=== PATIENT | female | born 1975 | race Caucasian/White ===

== ENCOUNTER 2016-08-24 15:10 | Emergency (ER) | payer OTHER ==
[~2016-08-24] VITALS: Ht 162.6 cm; Wt 55.9 kg
[2016-08-24 15:18] VITALS: BP 111/64; PULSE 71; RESP 18; O2SAT 96
--- NOTE | 2016-08-24 15:51 | ED.REPORT ---
HPI-General Illness Date of Service Aug 24, 2016 ED Provider: Dr. Meneses 40 y/o female with a hx of autism and self-induced injuries presents to the ED with her caregiver due to a laceration on the forehead after she hit her head against a banister 5 hours ago. The pt did not lose consciousness upon hitting her head. There is no bleeding in the ED. Her caregivers requested glue application at urgent care but were sent to the ED for stitches. As per the caregiver, the pt has required sedation for stitches in the past as she becomes aggressive. Nursing Notes Stated Complaint: HEAD LACERATION Chief Complaint: Laceration Nursing Notes Reviewed: Yes Allergies: Coded Allergies: No Known Allergies (Unverified , 08/24/16) General Time Seen by MD: 15:50 Chief Complaint Laceration Hx Obtained From: Assistant Paralegal Arrived By: Walk-in Sudden in Onset?: Yes Onset Occurred: 1 - 4 hours ago Symptom Duration: Since onset Severity: Current: No pain currently Severity: Maximum: No pain Recent Healthcare: Recent doctor visit Similar Sx Previous: Yes Past Medical History Past Medical History Autism Cerebral Palsy Past Surgical History none reported Social History Lives alone in a supported living facility Ambulatory Status Independent Review of Systems Reports: laceration to forehead Full Review of Systems Neurologic: Denies: Change LOC Complete sys rev & neg: except as marked. Physical Exam Vital Signs Vital Signs Date Time Temp Pulse Resp B/P Pulse Ox O2 Delivery O2 Flow Rate FiO2 08/24/16 15:18 37.0 71 18 111/64 96 Room Air Initial VS: Reviewed Head / Eyes: Normocephalic Neck: Supple, Non-tender, Full range of motion Respiratory: No respiratory distress Extremities: Vascular intact, Neuro intact, No swelling, No tenderness Skin: Warm, Dry, No cyanosis Neurologic: Alert, Oriented, Nonfocal General/Constitutional: Awake, Alert, No acute distress, Cooperative Cardiovascular: Heart rate NL, Regular rhythm Skin: Color NL, Warm, Dry, No swelling 1cm laceration of full thickness at the left side of hairline. Neurologic: No motor deficits, No sensory deficits Procedures Laceration Management Procedure Performed by: ED physician Consent / Setup / Site Prep: Informed consent provided, Consent from patient , Consent from high school tutor Location of Wound: L forehead at hairline Wound Length: 1 cm Wound Preparation: Hibiclens - Chlorhexidine Debridement: Minimal Foreign Body Explore / Removal: Explored for foreign body Repair Skin: Dermabond Post-Procedure / Complications: Dressing applied, No complications, Tolerated procedure well, Patient stable Re-Eval/Medical Decision Time of Eval: 16:05 Patient Status: Condition improved Re-Evaluation/Progress Note: Applied Dermabond. Discussed diagnosis and plan to discharge with the pt's caregiver. She understands and agrees with the plan. F/U instructions and RTER warning given. All questions addressed. Counseled Regarding: Diagnosis, Need for follow-up, When/why to return to ED Discharge & Departure Primary Impression: Laceration Additional Impressions: Agitation Autism Disposition: Home Discharge Condition All VS Reviewed: Yes Condition: Stable Patient Instructions: Laceration (ED) Additional Instructions: Thank you for entrusting us with your care today. Cheryls laceration did not require stitches because it is in an area of low tension. Dermabond and a Steri-Strip were applied to the wound and it looks very good. Follow up with the primary care provider if needed. She can shower/bathe tomorrow as usual Return to the emergency department in case of increasing redness, drainage, fevers, chills or worsening symptoms. Referrals: Maricel Diaz MD (PCP) Scribe Attestation Portions of this note were transcribed by Roel Banuelos. I, , personally performed the history, physical exam and medical decision- making;I reviewed and confirmed the accuracy of the information in the transcribed note. Signed by Heather Real. 08/24/16 16:21 copies to: Maricel Diaz MD, Gary R DO Aug 24, 2016 15:51 Roel Banuelos Aug 24, 2016 16:11
== END 2016-08-24 16:25 | disposition home or self-care (01) ==
LOC: SED 15:10
DX: S01.81XA Laceration without foreign body of other part of head, initial encounter (principal); R45.1 Restlessness and agitation; F84.0 Autistic disorder; W22.8XXA Striking against or struck by other objects, initial encounter; Y93.9 Activity, unspecified; Y92.9 Unspecified place or not applicable; Y99.9 Unspecified external cause status
CPT/HCPCS: 12011; 99283; G0463

== ENCOUNTER 2016-08-30 08:20 | Emergency (ER) | payer OTHER ==
--- NOTE | 2016-08-30 08:24 | ED.REPORT ---
HPI-Head Prob / Injury Date of Service Aug 30, 2016 ED Provider: Rajeev Queen Patient is a 40 year old female with a hx of autism and self-inflicted injuries who presents to the ED accompanied by a caregiver complaining of a head laceration re-opening this morning after hitting her head on a door. Her original injury was obtained when she hit her head into a wall 6 days ago. She was seen in this department shortly after and her injury was closed with Dermabond. She did not lose consciousness during either event. Per caregiver, she does not have any other concerning injuries or symptoms. Her tetanus is up to date. Nursing Notes Stated Complaint: RE-OPENED HEAD LACERATION Nursing Notes Reviewed: Yes Allergies: Coded Allergies: No Known Allergies (Unverified , 08/24/16) General Time Seen by Provider: 08:24 Chief Complaint Laceration Hx Obtained From: Transcribing Operators Supervisor Arrived By: Walk-in Onset Occurred: Just prior to arrival Progression Since Onset: Unchanged Immunizations: Tetanus up to date Recent Healthcare: Recent doctor visit Similar Sx Previous: Yes Risk-Head Prob / Injury )( IC Bleed Risk Strat No Age (<1 yr or >60 yrs), No Blood thinners RF Statements: Risk factors reviewed Past Medical History Past Medical History Autism Cerebral Palsy Past Surgical History none reported Smoking History Unknown if Ever Smoker Social History Lives alone in a supported living facility Other Social History: Local resident Ambulatory Status Independent Review of Systems Review of Systems Note: +laceration -bleeding Skin: Denies Swelling Neurologic: Denies: Change LOC, Headache Complete sys rev & neg: except as marked. Physical Exam Initial Vital Signs Vital Signs (First) Date Time Temp Pulse Resp B/P Pulse Ox O2 Delivery O2 Flow Rate FiO2 08/30/16 08:37 36.7 101 16 110/ 98 Room Air Initial VS: Reviewed Respiratory: No respiratory distress Cardiovascular: Intact distal pulses Skin: Warm, Dry Psychiatric: Mood/affect normal, Behavior normal, Normal thought content General/Constitutional: Awake, Alert Head / Eyes: Normocephalic, EOMI Trauma - General: Positive: Laceration 2cm vertical laceration to the L of the midline of forehead. Laceration starts at the hairline and extends inferiorly. ENT: Airway patent Small abrasion over bridge of nose. Nasal bone stable. Neck: Atraumatic, Supple, Full range of motion Neurologic: No sensory deficits Per caregiver, patient is at her baseline. Re-Eval/Medical Decision Re-Evaluation/Progress : Time of Eval: 08:32 Re-Evaluation/Progress Note: Discussed plan for discharge. Patient's caregiver understands and agrees with plan. All questions addressed at this time. Counseled Regarding: Diagnosis, Need for follow-up, When/why to return to ED Discharge & Departure Primary Impression: Laceration Disposition: Home All VS Reviewed: Yes Condition: Stable Patient Instructions: Laceration Without Closure (ED) Additional Instructions: This wound is fairly superficial and should heal on its own. The risk of sedation for definitive closure outweighs the expected benefits. I recommended twice daily application of antibiotic ointment for 1-2 weeks. Follow-up for signs or symptoms of infection. Resume all previous medications. Referrals: Maricel Diaz MD (PCP) Scribe Attestation Portions of this note were transcribed by Terry Mcdoanld. I, Dr. Queen personally performed the history, physical exam and medical decision-making; I reviewed and confirmed the accuracy of the information in the transcribed note. Signed by: Terry Mcdonald 08/30/16, 0874 copies to: Maricel Diaz MD, Kirk H MD Aug 30, 2016 08:24 TERRY MCDONALD Aug 30, 2016 08:45 TERRY MCDONALD Aug 30, 2016 08:45
[2016-08-30 08:37] VITALS: BP_SYST 110; PULSE 101; RESP 16; O2SAT 98
== END 2016-08-30 08:47 | disposition home or self-care (01) ==
LOC: SED 08:20
DX: S01.81XA Laceration without foreign body of other part of head, initial encounter (principal); W22.8XXA Striking against or struck by other objects, initial encounter; Y93.89 Activity, other specified; Y92.89 Other specified places as the place of occurrence of the external cause; Y99.8 Other external cause status; G80.9 Cerebral palsy, unspecified

== ENCOUNTER 2016-09-18 14:44 | Emergency (ER) | payer OTHER ==
[~2016-09-18] VITALS: Ht 165.1 cm; Wt 63.6 kg
[2016-09-18 14:47] VITALS: BP 105/67; PULSE 68; RESP 16; O2SAT 100
--- NOTE | 2016-09-18 15:53 | ED.REPORT ---
HPI-Trauma Minor / Fall Date of Service Sep 18, 2016 ED Provider: Luke Roberts MD Patient is a 40 year old female with a history of autism and cerebral palsy who was brought to the ED by her property administrator due to self inflicted injuries that happened a few hours ago. Per the patient's property administrator, the patient hit her face on a car window and the concrete ground. She also bit her left forearm. The patient complains of neck pain but when asked if she has a headache, the patient only complains of neck pain. The patient has not vomited according to her property administrator. Per the patient's property administrator, the patient is at baseline. Nursing Notes Stated Complaint: HEAD INJURY Chief Complaint: Head, Face, Neck Trauma Nursing Notes Reviewed: Yes Allergies: Coded Allergies: No Known Allergies (Unverified , 09/18/16) General Time Seen by MD: 15:52 Chief Complaint Head injury Hx Obtained From: Patient, [employer] Unable to Obtain Hx: Patient condition, Mental status Arrived By: Walk-in Onset Occurred: 1 - 4 hours ago Caused by: Blunt trauma Location: Neck Quality: Painful Recent Healthcare: Recent doctor visit Past Medical History Past Medical History Autism Cerebral Palsy Past Surgical History none reported Smoking History Unknown if Ever Smoker Social History Lives alone in a supported living facility Other Social History: Good social support, Local resident Ambulatory Status Independent Review of Systems Review of Systems Note: +bite ramu on left forearm Constitutional: Denies: Chills, Fever Musculoskeletal: Reports: Neck pain Skin: Denies Itching, Denies Rash Neurologic: Denies: Change LOC, Headache, Lightheaded, Problem walking Complete sys rev & neg: except as marked. Physical Exam Initial Vital Signs Vital Signs (First) Date Time Temp Pulse Resp B/P Pulse Ox O2 Delivery O2 Flow Rate FiO2 09/18/16 14:47 37.4 68 16 105/67 100 Room Air Initial VS: Reviewed General/Constitutional: Awake, Alert, No acute distress Neck: Atraumatic, Non-tender no step offs Head / Eyes: Normocephalic, PERRL, EOMI contusion to the left occiput scalp Respiratory / Chest: Atraumatic, No respiratory distress Upper Extremity / MS: Full range of motion, No swelling small area of bite vega from self induced biting Lower Extremity / Pelvis / MS: Atraumatic, Full range of motion Skin: Color NL, No rash, Warm, Dry Re-Eval/Medical Decision Med Decision/Clinical Course 40 year old DD patient with minor mechanism. She does have a scalp contusion, mental status at baseline, no midline neck tenderness. Not anticoagulated. Would require sedation to get a good CT of brain. Do noth think this is really needed at present. Re-Evaluation/Progress : Time of Eval: 16:08 Re-Evaluation/Progress Note: Discussed that since the patient is back at baseline a CT is not necessary at this time. Patient's property administrator understands and agrees to plan. Discussed plan for discharge. Patient's property administrator understands and agrees to plan. All questions were addressed. Counseled Regarding: Diagnosis, Need for follow-up, When/why to return to ED Discharge & Departure Impression: Primary Impression: Contusion of scalp Encounter type: initial encounter Qualified Code: S00.03XA - Contusion of scalp, initial encounter Disposition: Home Discharge Condition All VS Reviewed: Yes Condition: Stable Additional Instructions: In the ED today, we did an interview and exam. Behavior is at baseline and she does not appear distressed. There is a contusion to the scalp noted, exam is otherwise reassuring. Continue previous care. May use tylenol 650mg every 6-4 hours as needed for pain. Return to ED for vomiting, change in mental status, severe headache or seizures. Follow up with primary care as needed. Referrals: Maricel Diaz MD (PCP) Heather Attestation Portions of this note were transcribed by Nicole Beck. I, Dr. Roberts personally performed the history, physical exam and medical decision-making; I reviewed and confirmed the accuracy of the information in the transcribed note. Signed by: Heather Valentine, 09/18/16 copies to: Maricel Diaz MD, Donald L MD Sep 18, 2016 15:53 Landy Beck Sep 18, 2016 15:58
== END 2016-09-18 16:41 | disposition home or self-care (01) ==
LOC: SED 15:06
DX: S00.03XA Contusion of scalp, initial encounter (principal); W22.8XXA Striking against or struck by other objects, initial encounter; Y93.9 Activity, unspecified; Y92.9 Unspecified place or not applicable; Y99.9 Unspecified external cause status; F84.0 Autistic disorder; G80.9 Cerebral palsy, unspecified

== ENCOUNTER 2016-09-20 18:10 | Emergency (ER) | payer OTHER ==
[2016-09-20 18:11] VITALS: BP 117/76; PULSE 91; RESP 21; O2SAT 98
--- NOTE | 2016-09-20 19:37 | ED.REPORT ---
HPI-Head Prob / Injury Date of Service Sep 20, 2016 ED Provider: Dr. Meneses Pt is a 40 year old female with a hx of Autism and cerebral palsy presenting to the ED after intentionally hitting herself in the head with a door at about 1600 today. Her home economist consumer service reports that the pt is acting like her normal self. They deny any LOC, other injury or other symptoms. Nursing Notes Stated Complaint: POSS HEAD INJURY Chief Complaint: Head, Face, Neck Trauma Nursing Notes Reviewed: Yes Allergies: Coded Allergies: No Known Allergies (Unverified , 09/20/16) General Time Seen by Provider: 19:37 Chief Complaint Blunt head trauma Hx Obtained From: Accounting Professor Arrived By: Walk-in Onset Occurred: 1 - 4 hours ago Symptom Duration: Since onset Caused by: Blow to head Location: : Forehead Quality: Painful Severity: Current: Mild Severity: Maximum: Mild Recent Healthcare: Recent doctor visit Similar Sx Previous: Yes Past Medical History Past Medical History Autism Cerebral Palsy Past Surgical History none reported Smoking History Unknown if Ever Smoker Social History Lives alone in a supported living facility Other Social History: Good social support, Local resident Ambulatory Status Independent Review of Systems Review of Systems Note: Accounting Professor denies any change in behavior Unable to Obtain ROS Patient condition Skin: Reports Bruising Neurologic: Denies: Change LOC Psychiatric: Denies: Agitation, Change mental status Physical Exam Initial Vital Signs Vital Signs (First) Date Time Temp Pulse Resp B/P Pulse Ox O2 Delivery O2 Flow Rate FiO2 09/20/16 18:11 36.8 91 21 117/76 98 Room Air Initial VS: Reviewed Respiratory: Breath sounds normal, Clear to auscultation, No respiratory distress Cardiovascular: Regular rate & rhythm, Heart sounds normal, Intact distal pulses Abdomen / GI: Soft, Non-tender, No guarding, No rebound, No distention Extremities: Vascular intact, Neuro intact, No swelling, No tenderness Psychiatric: Mood/affect normal, Behavior normal, Normal thought content General/Constitutional: Awake, Alert, No acute distress Head / Eyes: Normocephalic, PERRL, EOMI Soft tissue swelling to mid forehead, well healed incisions. ENT: Atraumatic, Airway patent, Mucous membranes moist Neck: Atraumatic, Supple, No meningismus Skin: Warm, Dry, Intact Ecchymosis on left shoulder which is from 2 days ago. Re-Eval/Medical Decision Med Decision/Clinical Course Caregivers state she is acting normal but has to be seen and evaluated by medical professional whenever she injures herself which she does frequently with her self harm behaviors. There may be a small contusion on her forehead but certainly no laceration or significant injury. Here several days ago for injury to her shoulder. She is using her shoulder normally at this time despite the bruising/injury. Re-Evaluation/Progress : Time of Eval: 21:01 Patient Status: Condition improved Re-Evaluation/Progress Note: Discussed plan for discharge. Caretakers understand and agree with plan. Counseled Regarding: Diagnosis, Lab results, Need for follow-up, When/why to return to ED Discharge & Departure Primary Impression: Contusion of scalp Encounter type: initial encounter Qualified Code: S00.03XA - Contusion of scalp, initial encounter Additional Impression: Autism Disposition: Home All VS Reviewed: Yes Condition: Improved Patient Instructions: Facial Contusion (ED) Additional Instructions: Thank you for entrusting us with her care today. There were no dangerous injuries identified today. Take ibuprofen 600 mg every 8 hours as needed for pain. Follow up with her PCP as needed. Referrals: Yareli Saavedra DO (PCP) Shraddhaibad Attestation Portions of this note were transcribed by Asia Mace. I, Dr. Meneses personally performed the history, physical exam and medical decision-making; I reviewed and confirmed the accuracy of the information in the transcribed note. Signed by: Heather Almeida, 09/20/2016. copies to: Yareli Saavedra Gary R DO Sep 20, 2016 19:37 ASIA MACE Sep 20, 2016 20:36
== END 2016-09-20 21:15 | disposition home or self-care (01) ==
LOC: SED 18:10
DX: S00.03XA Contusion of scalp, initial encounter (principal); F84.0 Autistic disorder; W22.8XXA Striking against or struck by other objects, initial encounter; Y93.9 Activity, unspecified; Y92.9 Unspecified place or not applicable; Y99.9 Unspecified external cause status

== ENCOUNTER 2016-10-12 07:13 | Emergency (ER) | payer OTHER ==
[~2016-10-12] VITALS: Ht 167.6 cm; Wt 60.0 kg
[2016-10-12 07:15] VITALS: PULSE 85; RESP 18; O2SAT 97
--- NOTE | 2016-10-12 07:28 | ED.REPORT ---
HPI-Head Prob / Injury Date of Service Oct 12, 2016 ED Provider: Dr. Queen The pt is a 41 y/o female with a hx of autism and cerebral palsy who presents to the ED with her aircrewman due to a laceration on her left eyebrow, onset just prior to arrival. The pt fell while getting out of bed and hit her head on the door. She did not lose consciousness and did not vomit. Nursing Notes Stated Complaint: HEAD LACERATION Chief Complaint: Laceration Allergies: Coded Allergies: No Known Allergies (Unverified , 09/20/16) General Time Seen by Provider: 07:28 Chief Complaint Laceration Hx Obtained From: Wafer Fabricator Arrived By: Walk-in Onset Occurred: Just prior to arrival Symptom Duration: Since onset Caused by: Fall out of bed Quality: Painful Severity: Current: Mild Severity: Maximum: Mild Recent Healthcare: Recent doctor visit Similar Sx Previous: Yes Past Medical History Past Medical History Autism Cerebral Palsy Past Surgical History none reported Smoking History Unknown if Ever Smoker Social History Lives alone in a supported living facility Other Social History: Good social support, Local resident Ambulatory Status Independent Review of Systems Reports: laceration on the left eyebrow Complete sys rev & neg: except as marked. Physical Exam Initial Vital Signs Vital Signs (First) Date Time Temp Pulse Resp B/P Pulse Ox O2 Delivery O2 Flow Rate FiO2 10/12/16 07:15 36.5 85 18 97 Room Air Initial VS: Reviewed Respiratory: No respiratory distress Abdomen / GI: No guarding, No distention Extremities: Vascular intact, Neuro intact, No swelling, No tenderness Skin: Warm, Dry, No cyanosis General/Constitutional: Awake, Alert, Cooperative Head / Eyes: Normocephalic, PERRL Contusion over left zygoma Vertical laceration over the left eyebrow No orbital crepitus No other obvious injuries. ENT: Atraumatic, Airway patent Neck: Atraumatic, Supple, Full range of motion Neurologic: Speech NL, No motor deficits, No sensory deficits Re-Eval/Medical Decision Re-Evaluation/Progress : Time of Eval: 07:36 Re-Evaluation/Progress Note: Applied glue and steri-strips. Discussed diagnosis and plan to discharge. Pt's aircrewman understands and agrees with the plan. F/U instruction and RTER warning given. All questions addressed. Counseled Regarding: Diagnosis, Need for follow-up, When/why to return to ED Discharge & Departure Primary Impression: Laceration Additional Impression: Contusion of head Encounter type: initial encounter Contusion of head detail: other part of head Qualified Code: S00.83XA - Contusion of other part of head, initial encounter Disposition: Home All VS Reviewed: Yes Condition: Stable Patient Instructions: Laceration (ED) Additional Instructions: The glue and Steri-Strips will come off on their own over the next few days. Watch carefully for signs or symptoms of infection and follow-up if observed. Return to the emergency department for new or worrisome symptoms such as excessive vomiting or fainting. Referrals: Yareli Saavedra DO (PCP) Scribe Attestation Portions of this note were transcribed by Roel Banuelos. I,, personally performed the history,physical exam and medical decision-making;I reviewed and confirmed the accuracy of the information in the transcribed note. Signed by Heather Real. 10/12/16 copies to: Yareli Saavedra Kirk H MD Oct 12, 2016 07:28 Roel Banuelos Oct 12, 2016 07:35
== END 2016-10-12 07:51 | disposition home or self-care (01) ==
LOC: SED 07:39
DX: S01.112A Laceration without foreign body of left eyelid and periocular area, initial encounter (principal); S00.83XA Contusion of other part of head, initial encounter; W06.XXXA Fall from bed, initial encounter; Y93.89 Activity, other specified; Y92.89 Other specified places as the place of occurrence of the external cause; Y99.8 Other external cause status